=== PATIENT | female | born 1980 | race Caucasian/White ===

== ENCOUNTER 2016-12-25 20:22 | Emergency (ER) | payer MEDICAID, OTHER ==
[~2016-12-25] VITALS: Ht 172.7 cm; Wt 88.5 kg
[~2016-12-25 20:22] MED LIST: BACTRIM DS 800/1 TAB PO; EFFEXOR; EFFEXOR XR150 MG PO; MOTRIN600 M1 PO; NEURONTIN; NEURONTIN800 MG PO; TRAZADONE; TRAZADONE HYDR100 MG PO; VICODIN 500 MG-1 TA1 PO; XANAX0.5 MG PO
[2016-12-25 20:48] VITALS: BP 117/75
--- NOTE | 2016-12-25 21:07 | NUR ---
PT TAKEN TO OF
--- NOTE | 2016-12-25 21:51 | NUR ---
Dr. Young evaluating patient
--- NOTE | 2016-12-25 22:30 | NUR ---
Dr Conteh aware of pain. No orders received.
[2016-12-25 23:20] VITALS: BP 112/61
--- NOTE | 2016-12-25 23:20 | NUR ---
Patient discharged with v/s stable. Written and verbal after care instructions given and explained. Patient alert, oriented and verbalized understanding of instructions. Ambulatory with steady gait. All questions addressed prior to discharge. ID band removed. Patient advised to follow up with PMD. Rx of Flexeril given. Patient educated on indication of medication including possible reaction and side effects. Opportunity to ask questions provided and answered.
== END 2016-12-25 23:20 | disposition home or self-care (01) ==
LOC: MED 20:22
DX: S16.1XXA Strain of muscle, fascia and tendon at neck level, initial encounter (principal); S80.01XA Contusion of right knee, initial encounter; Z88.6 Allergy status to analgesic agent; Z88.0 Allergy status to penicillin; V49.40XA Driver injured in collision with unspecified motor vehicles in traffic accident, initial encounter; Y93.89 Activity, other specified; Y92.488 Other paved roadways as the place of occurrence of the external cause; Y99.8 Other external cause status

== ENCOUNTER 2017-03-28 22:03 | Emergency (ER) | payer OTHER ==
[~2017-03-28] VITALS: Ht 172.7 cm; Wt 88.5 kg
[~2017-03-28 22:03] MED LIST changes: +ACET-4192 PO; +ALPR0.5T2 PO; -BACTRIM DS 800/1 TAB PO; -EFFEXOR; -EFFEXOR XR150 MG PO; +GABA800T PO; +IBUP-2213 PO; -MOTRIN600 M1 PO; -NEURONTIN; -NEURONTIN800 MG PO; +SULF1TAB12 PO; +TRAZ-289 PO; -TRAZADONE; -TRAZADONE HYDR100 MG PO; -VICODIN 500 MG-1 TA1 PO; -XANAX0.5 MG PO; +[UNRECOGNIZED DRUG - CODE] PO
[2017-03-28 22:29] VITALS: BP 122/71
--- NOTE | 2017-03-29 00:10 | NUR ---
TO ER BED 7
--- NOTE | 2017-03-29 00:15 | NUR ---
36Y/F PT. PRESENTS TO ED WITH C/O ANXIETY ON AND OFF X 1 DAY. TOOK ATIVAN 0.5 MG PO 30 MINS. HX. BIPOLAR, ANXIETY, DEPRESSION. AAO X4, AMBULATORY WITH STEADY GAIT. NO S/SX OF DISTRESS AT THIS TIME. VSS, ER MADE AWARE OF PT. STATUS.
--- NOTE | 2017-03-29 00:15 | NUR ---
Patient being evaluated by physician at bedside.
--- NOTE | 2017-03-29 00:24 | NUR ---
Patient discharged with v/s stable. Written and verbal after care instructions given and explained. Patient verbalized understanding. Ambulatory with steady gait. All questions addressed prior to discharge. Advised to follow up with PMD.
[2017-03-29 00:34] VITALS: BP 118/78
== END 2017-03-29 00:34 | disposition home or self-care (01) ==
LOC: MED 22:03
DX: F41.9 Anxiety disorder, unspecified (principal); R03.0 Elevated blood-pressure reading, without diagnosis of hypertension; Z88.0 Allergy status to penicillin; Z88.1 Allergy status to other antibiotic agents; Z88.5 Allergy status to narcotic agent; Z79.899 Other long term (current) drug therapy
CPT/HCPCS: 81002; 81025; 99284

== ENCOUNTER 2017-04-19 17:47 | Emergency (ER) | payer OTHER ==
[~2017-04-19] VITALS: Ht 172.7 cm; Wt 88.5 kg
[2017-04-19 18:07] VITALS: BP 110/64
--- NOTE | 2017-04-19 18:27 | NUR ---
Patient taken from ED lobby to XRAY via wheelchair by tech.
--- NOTE | 2017-04-19 18:33 | NUR ---
Patient returned to ED lobby to wait for an available bed after completion of XRAY.
--- NOTE | 2017-04-19 19:11 | NUR ---
36/F c/o lower back pain s/p slip and fall last night 0300. Pt states she had lumbar surgery 3 years ago to L4 and L5 and states "It hurts where my surgery was." Ambulatory with steady gait. VSS. AOX4, clear speech.
--- NOTE | 2017-04-19 19:14 | NUR ---
Pt placed in bed 8
--- NOTE | 2017-04-19 19:17 | NUR ---
Christophe alonso in [facility] - 04/19/17 at [address] Gillespie evaluating patient at bedside.
--- NOTE | 2017-04-19 19:17 | NUR ---
Patient being evaluated by Dr. Gillespie at bedside.
[2017-04-19] MEDS ORDERED: HYDROcodone/APAP 5/325 MG 1 TAB TAB PO ONE (19:30)
[2017-04-19] MEDS ORDERED: KETOROLAC 30 MG/ML VIAL IM ONE (19:30)
--- NOTE | 2017-04-19 19:46 | NUR ---
Pt taken to x-ray via w/c.
--- NOTE | 2017-04-19 19:56 | NUR ---
PT RETURN FROM XRAY
--- NOTE | 2017-04-19 20:00 | NUR ---
Pt back from x-ray and placed in bed 8.
[2017-04-19 20:36] VITALS: BP 112/62
--- NOTE | 2017-04-19 20:37 | NUR ---
Patient discharged with v/s stable. Written and verbal after care instructions given and explained. Patient alert, oriented and verbalized understanding of instructions. Ambulatory with steady gait. All questions addressed prior to discharge. ID band removed. Patient advised to follow up with PMD. Rx of NAPROSYN 500MG, VALIUM 5MG TID/PRN given. Patient educated on indication of medication including possible reaction and side effects. Opportunity to ask questions provided and answered.
== END 2017-04-19 20:37 | disposition home or self-care (01) ==
LOC: MED 17:47
DX: S80.12XA Contusion of left lower leg, initial encounter (principal); M54.5 Low back pain; Z88.0 Allergy status to penicillin; Z88.5 Allergy status to narcotic agent; Z79.899 Other long term (current) drug therapy; Z88.8 Allergy status to other drugs, medicaments and biological substances; W01.0XXA Fall on same level from slipping, tripping and stumbling without subsequent striking against object, initial encounter; Y93.89 Activity, other specified; Y92.89 Other specified places as the place of occurrence of the external cause; Y99.8 Other external cause status
CPT/HCPCS: 72100; 73590; 96372; 99284; J1885

== ENCOUNTER 2018-02-14 20:22 | Emergency (ER) | payer OTHER ==
[~2018-02-14] VITALS: Ht 172.7 cm; Wt 83.9 kg
[2018-02-14 20:34] VITALS: BP 104/66
[2018-02-14] MEDS ORDERED: KETOROLAC 30 MG/ML VIAL IM ONE (20:50)
[2018-02-14] MEDS ORDERED: KETOROLAC 30 MG/ML VIAL ONE (20:55)
[2018-02-14 22:39] VITALS: BP 106/62
[2018-02-14 23:19] LABS: APPEARANCE,URINE CLEAR (CLEAR); BILIRUBIN,URINE NEGATIVE (NEGATIVE); BLOOD, URINE NEGATIVE (NEGATIVE); COLOR,URINE YELLOW (YELLOW); LEUKOCYTE ESTERASE ,URINE NEGATIVE (NEGATIVE); NITRITE, URINE NEGATIVE (NEGATIVE); UGLUCOSE NEGATIVE (NEGATIVE)
== END 2018-02-14 22:39 | disposition home or self-care (01) ==
LOC: MED 20:22
DX: M94.0 Chondrocostal junction syndrome [Tietze] (principal); F41.9 Anxiety disorder, unspecified; Z88.6 Allergy status to analgesic agent; Z88.8 Allergy status to other drugs, medicaments and biological substances; Z79.899 Other long term (current) drug therapy
CPT/HCPCS: 71045; 81003; 81025; 93005; 96372; 99285; J1885; Q0092

== ENCOUNTER 2018-02-22 19:15 | Emergency (ER) | payer OTHER ==
[~2018-02-22] VITALS: Ht 172.7 cm; Wt 83.9 kg
[2018-02-22 19:30] VITALS: BP 143/58
--- NOTE | 2018-02-22 19:30 | NUR ---
PT BROUGHT TO E FOR BEDSIDE TRIAGE. AMBULATED AND EVALUATED BY RN. EDMD MADE AWARE.
--- NOTE | 2018-02-22 19:40 | NUR ---
PT DENIES N/V/D; SKIN IS INTACT, PINK/WARM/DRY C/O ITCHING FOR 2 HRS X 4 EXTREMS; AAOX4, PERRL, WITH EVEN AND STEADY GAIT; LUNGS CLEAR BL, BREATHING UNLABORED; HR EVEN AND REGULAR, BL PERIPHERAL PULSES PRESENT; BS ACTIVE X4, NO TENDERNESS TO PALPATION, NO HEPATOSPLENOMEGALLY PALPATED, RESONANT TO PERCUSSION; PT DENIES ANY FEVER, CP, SOB, OR COUGH AT THIS TIME; PT STATES 0/10 PAIN AT THIS TIME; VSS; PATIENT POSITIONED FOR COMFORT; HOB ELEVATED; BEDRAILS UP X2; BED DOWN.
[2018-02-22 20:09] LABS: APPEARANCE,URINE CLEAR (CLEAR); BILIRUBIN,URINE NEGATIVE (NEGATIVE); BLOOD, URINE NEGATIVE (NEGATIVE); COLOR,URINE YELLOW (YELLOW); LEUKOCYTE ESTERASE ,URINE NEGATIVE (NEGATIVE); NITRITE, URINE NEGATIVE (NEGATIVE); UGLUCOSE NEGATIVE (NEGATIVE)
[2018-02-22] MEDS ORDERED: diphenhydrAMINE 50 MG CAP PO ONE (20:15)
[2018-02-22] MEDS ORDERED: DEXAMETHASONE 10 MG/ML VIAL IM ONE (20:15)
[2018-02-22 20:24] LABS: BARBITURATE, URINE NEGATIVE ng/ml (NEG <=200); BENZODIAZEPINE, URINE NEGATIVE ng/mL (NEG <=200); CANNABINOID, URINE NEGATIVE ng/mL (NEG <=50); COCAINE, URINE NEGATIVE ng/mL (NEG <=300); OPIATE, URINE NEGATIVE ng/mL (NEG <=2000); PHENCYCLIDINE SCREEN,URINE NEGATIVE ng/mL (NEG <=25)
[2018-02-22 22:10] VITALS: BP 135/57
--- NOTE | 2018-02-22 22:10 | NUR ---
Patient discharged with v/s stable. Written and verbal after care instructions given and explained. Patient alert, oriented and verbalized understanding of instructions. Ambulatory with steady gait. All questions addressed prior to discharge. ID band removed. Patient advised to follow up with PMD. Rx of BENADRYL 25MG given. Patient educated on indication of medication including possible reaction and side effects. Opportunity to ask questions provided and answered.
== END 2018-02-22 22:10 | disposition home or self-care (01) ==
LOC: MED 19:15
DX: L27.0 Generalized skin eruption due to drugs and medicaments taken internally (principal); T43.595A Adverse effect of other antipsychotics and neuroleptics, initial encounter; F11.988 Opioid use, unspecified with other opioid-induced disorder; Z88.5 Allergy status to narcotic agent; Z88.0 Allergy status to penicillin; Z79.899 Other long term (current) drug therapy; Y92.89 Other specified places as the place of occurrence of the external cause
CPT/HCPCS: 81003; 96372; 99283; J1100; Q0163

== ENCOUNTER 2018-05-24 09:30 | Emergency (ER) | payer OTHER ==
[~2018-05-24] VITALS: Ht 172.7 cm; Wt 86.3 kg
[~2018-05-24 09:30] MED LIST changes: -TRAZ-289 PO; +TRAZ100T99 PO
[2018-05-24 09:40] VITALS: BP 96/58
[2018-05-24] MEDS ORDERED: NACL 0.9% 1,000 ML IV SCH (10:10)
[2018-05-24] MEDS ORDERED: KETOROLAC 30 MG/ML VIAL IVP ONE (10:10)
[2018-05-24] MEDS ORDERED: ONDANSETRON 4 MG/2 ML VIAL IVP ONE (10:10)
[2018-05-24 10:33] LABS: APPEARANCE,URINE CLEAR (CLEAR); COLOR,URINE YELLOW (YELLOW)
[2018-05-24 10:34] LABS: PH,URINE 6.5 (5.0-9.0); UGLUCOSE NEGATIVE (NEGATIVE)
[2018-05-24 10:34] LABS: BASOPHILS % (AUTO) 0.6 % (0.0-2.0); EOSINOPHILS # (AUTO) 0.1 K/uL (0-0.4); EOSINOPHILS % (AUTO) 1.1 % (0.0-4.0); HEMATOCRIT 43.3 % (36-48); HEMOGLOBIN 14.6 g/dL (12.0-16.0); LYMPHOCYTES # (AUTO) 2.3 K/uL (2.5-16.5); MEAN CORPUSCULAR HEMOGLOBIN 32 pg (27-31); MEAN CORPUSCULAR HGB CONC 34 g/dL (33-37); MEAN CORPUSCULAR VOLUME 95.7 fL (80-94); MONOCYTES # (AUTO) 0.6 K/uL (0.8-1.0); MONOCYTES % (AUTO) 9.2 % (1.7-9.3); NEUTROPHILS # (AUTO) 3.7 K/uL (1.8-7.7); NEUTROPHILS % (AUTO) 55.1 % (42.2-75.2); PLATELET COUNT (AUTO) 186 K/uL (140-450); RED BLOOD CELL COUNT(AUTO) 4.52 MIL/uL (4.20-5.40); RED CELL DISTRIBUTION WIDTH 12.3 % (11.6-13.7); WHITE BLOOD COUNT (AUTO) 6.7 K/uL (4.8-10.8)
[2018-05-24 10:35] LABS: BILIRUBIN,URINE NEGATIVE (NEGATIVE); BLOOD, URINE NEGATIVE (NEGATIVE); LEUKOCYTE ESTERASE ,URINE NEGATIVE (NEGATIVE); NITRITE, URINE NEGATIVE (NEGATIVE)
[2018-05-24 10:45] LABS: ANION GAP 12.8 (8-16); CARBON DIOXIDE 26.3 mmol/L (21-32); POTASSIUM 4.1 mmol/L (3.5-5.1)
[2018-05-24 10:51] LABS: RBC,URINE 0-5 (RARE) /HPF (0-5); WBC,URINE 0-5 (RARE) /HPF (0-5)
[2018-05-24 10:51] LABS: ALBUMIN 3.9 g/dL (3.4-5.0); TOTAL BILIRUBIN 0.4 mg/dL (0.0-1.0)
[2018-05-24 11:55] VITALS: BP 102/58
== END 2018-05-24 11:56 | disposition home or self-care (01) ==
LOC: MED 09:30
DX: R11.2 Nausea with vomiting, unspecified (principal); R10.31 Right lower quadrant pain; Z90.89 Acquired absence of other organs; Z88.5 Allergy status to narcotic agent; Z79.899 Other long term (current) drug therapy
CPT/HCPCS: 36415; 74176; 80053; 81001; 81025; 83690; 85025; 96361; 96374; 96375; 99285; J1885; J2405; J7030

== ENCOUNTER 2018-07-10 20:14 | Emergency (ER) | payer OTHER ==
[~2018-07-10] VITALS: Ht 172.7 cm; Wt 88.5 kg
--- NOTE | 2018-07-10 20:22 | NUR ---
PT AMBULATED TO BED 7
[2018-07-10 20:26] VITALS: BP 103/59
--- NOTE | 2018-07-10 20:29 | NUR ---
PT C/O LOW BACK PAIN 03/10 ACHING AND SOB STARTING 1 HR AGO. DENIES INJURY. NO OTHER COMPLAINTS. STATES THIS HAS HAPPENED BEFORE. HX--- BIPOLAR, ANXIETY, KIDNEY STONES, BACK SURGERY MEDS---TRAZADONE, GABAPENTIN, NORCO, ATIVAN, EFFEXOR
--- NOTE | 2018-07-10 20:39 | NUR ---
UA DONE, HCG NEG
--- NOTE | 2018-07-10 20:41 | NUR ---
Dr. Shea evaluating patient at bedside.
[2018-07-10] MEDS ORDERED: ALPRAZolam 0.5 MG TAB PO ONE (20:45)
--- NOTE | 2018-07-10 21:04 | NUR ---
X-Ray at bedside.
--- NOTE | 2018-07-10 21:24 | NUR ---
REPORT GIVEN TO BROWN TOBAR
[2018-07-10 21:44] VITALS: BP 110/57
== END 2018-07-10 21:47 | disposition home or self-care (01) ==
LOC: MED 20:14
DX: F41.9 Anxiety disorder, unspecified (principal); Z88.5 Allergy status to narcotic agent; Z88.0 Allergy status to penicillin; Z79.899 Other long term (current) drug therapy; Z79.1 Long term (current) use of non-steroidal anti-inflammatories (NSAID)
CPT/HCPCS: 71045; 81002; 81025; 99283; Q0092

== ENCOUNTER 2018-09-26 01:32 | Emergency (ER) | payer OTHER ==
[~2018-09-26] VITALS: Ht 172.7 cm; Wt 95.3 kg
[2018-09-26 01:37] VITALS: BP 111/59
--- NOTE | 2018-09-26 01:44 | NUR ---
PT AMBULATORY TO BR THEN TO ER LOBBY W/ STEADY GAIT IN STABLE CONDITION.
--- NOTE | 2018-09-26 02:58 | NUR ---
PT AMBULATED TO BED 6
--- NOTE | 2018-09-26 03:24 | NUR ---
PT TO ED WITH C/O SORE THROAT AND DYSURIA X 10 DAYS. PT DENIES CP/SOB/DIFFICULTY BREATHING. PT PLACED INTO BED, PENDING MD BRICE.
[2018-09-26] MEDS ORDERED: AZITHROMYCIN 250 MG TAB PO ONE (03:40)
[2018-09-26] MEDS ORDERED: IBUPROFEN 800 MG TAB PO ONE (03:40)
[2018-09-26 04:04] VITALS: BP 111/59
--- NOTE | 2018-09-26 04:05 | NUR ---
Patient discharged with v/s stable. Written and verbal after care instructions given and explained. Patient alert, oriented and verbalized understanding of instructions. Ambulatory with steady gait. All questions addressed prior to discharge. ID band removed. Patient advised to follow up with PMD. Rx of AZITHROYMYCIN, MOTRIN given. Patient educated on indication of medication including possible reaction and side effects. Opportunity to ask questions provided and answered.
== END 2018-09-26 04:05 | disposition home or self-care (01) ==
LOC: MED 01:32
DX: J02.8 Acute pharyngitis due to other specified organisms (principal); B96.89 Other specified bacterial agents as the cause of diseases classified elsewhere; Z90.49 Acquired absence of other specified parts of digestive tract; Z88.0 Allergy status to penicillin; Z88.5 Allergy status to narcotic agent; Z88.8 Allergy status to other drugs, medicaments and biological substances; Z79.899 Other long term (current) drug therapy
CPT/HCPCS: 81002; 81025; 99283

== ENCOUNTER 2021-04-16 08:16 | Emergency (ER) | payer OTHER ==
[~2021-04-16] VITALS: Ht 172.7 cm; Wt 104.3 kg
[~2021-04-16 08:16] MED LIST changes: +SULF-954 PO; -SULF1TAB12 PO; +TRAZ-471 PO; -TRAZ100T99 PO
[2021-04-16 08:21] VITALS: BP 140/80
--- NOTE | 2021-04-16 08:33 | NUR ---
PT AMB TO BED 9
--- NOTE | 2021-04-16 08:40 | NUR ---
BIB SELF c/o 03/10 head pain, lauren knee pain s/p fall x 1 week. SEEN BY PAIN MANAGEMENT FOR BACK PAIN IN 03/26/21. PT HAS THE APPOINTMENT FOR PAIN MANAGEMENT FOR BACK PAIN EVERY 2 MONTHS. PMH: BACK SURGERY IN 2013
--- NOTE | 2021-04-16 08:44 | NUR ---
Patient being evaluated by DR SCHULTZ at bedside.
[2021-04-16] MEDS ORDERED: KETOROLAC 60 MG/2 ML VIAL IM ONE (08:50)
--- NOTE | 2021-04-16 09:34 | NUR ---
PT STATES SHE IS FEELING BETTER AFTER TORADOL SHOT, PAIN HAS DECREASED TO A 3/10 IN HEAD.
[2021-04-16 09:41] VITALS: BP 140/80
--- NOTE | 2021-04-16 09:41 | NUR ---
Patient discharged with v/s stable. Written and verbal after care instructions given and explained. Patient verbalized understanding. Ambulatory with to car. All questions addressed prior to discharge. Advised to follow up with PMD.
== END 2021-04-16 09:41 | disposition home or self-care (01) ==
LOC: MED 08:16
DX: S80.01XA Contusion of right knee, initial encounter (principal); S80.02XA Contusion of left knee, initial encounter; R51.9 Headache, unspecified; F12.90 Cannabis use, unspecified, uncomplicated; Z88.0 Allergy status to penicillin; Z88.8 Allergy status to other drugs, medicaments and biological substances; Z88.5 Allergy status to narcotic agent; Z79.899 Other long term (current) drug therapy; Z90.49 Acquired absence of other specified parts of digestive tract; Z98.890 Other specified postprocedural states; W22.8XXA Striking against or struck by other objects, initial encounter; Y93.89 Activity, other specified; Y92.89 Other specified places as the place of occurrence of the external cause; Y99.8 Other external cause status
CPT/HCPCS: 81002; 81025; 96372; 99283; J1885

== ENCOUNTER 2021-05-22 17:41 | Emergency (ER) | payer OTHER ==
[~2021-05-22] VITALS: Ht 172.7 cm; Wt 61.2 kg
[2021-05-22 17:45] VITALS: BP 107/57
--- NOTE | 2021-05-22 18:24 | NUR ---
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
[2021-05-22] MEDS ORDERED: HYDROmorphone PFS 2 MG/ML SYR IVP ONE (19:05)
[2021-05-22] MEDS ORDERED: diphenhydrAMINE 50 MG/ML VIAL IVP ONE (19:05)
[2021-05-22] MEDS ORDERED: METOCLOPRAMIDE 10 MG/2 ML INJ VIAL IVP ONE (19:05)
--- NOTE | 2021-05-22 19:20 | NUR ---
41 YO/F BIB SELF W C/O GENERALIZED ABDOMINAL PAIN SHARP/CRAMPING, CONSTANT NON-RADIATING 10/10 BEGINING AT 1000 THIS MORNING. +N/V(NO BLOOD IN VOMIT), BODY ACHES, HEADACHE. DENIES ANY FEVER, CHILLS, DIARRHEA, CONSTIPATION, CHEST PAIN OR SOB. DENIES ANY URINE OR BOWEL PROBLEMS. DENIES ANY INJURIES. BOWEL SOUNDS PRESENT THROUGHOUT, ABDOMEN SOFT AND TENDER. VSS, EXCEPT TACHY CARDIC AT 104 ERMD AWARE. PT LAYING IN BED LOCKED IN LOWEST POSITION W X2 SIDERAILS UP FOR PT SAFETY. BREATHING EVEN AND UNLABORED. NAD NOTED, WILL CONTINUE TO MONITOR. CAREGIVER AT BEDSIDE. PROVIDED PT W ICE CHIPS AND WATER PER ERMD OK. PMH:DEPRESSION, ANXIETY, +BACK, FEET, R LEG, HANDS SURGERIES ALLERGIES: PENICILLINS, CODEINE, MORPHINE, NIACIN, IODINE, VANCOMYCIN, HALDOL, ZYPREXA
--- NOTE | 2021-05-22 19:20 | NUR ---
PT ORAL TEMP 100.8, ERMD MADE AWARE.
[2021-05-22 19:32] LABS: APPEARANCE,URINE CLEAR (CLEAR); BILIRUBIN,URINE NEGATIVE (NEGATIVE); BLOOD, URINE NEGATIVE (NEGATIVE); COLOR,URINE YELLOW (YELLOW); LEUKOCYTE ESTERASE ,URINE NEGATIVE (NEGATIVE); NITRITE, URINE NEGATIVE (NEGATIVE); UGLUCOSE NEGATIVE (NEGATIVE)
[2021-05-22 19:32] LABS: BASOPHILS % (AUTO) 0.3 % (0.0-2.0); EOSINOPHILS % (AUTO) 0.3 % (0.0-4.0); HEMATOCRIT 45.1 % (36-48); HEMOGLOBIN 15.4 g/dL (12.0-16.0); LYMPHOCYTES # (AUTO) 0.7 K/uL (2.5-16.5); MEAN CORPUSCULAR HEMOGLOBIN 33 pg (27-31); MEAN CORPUSCULAR HGB CONC 34 g/dL (33-37); MEAN CORPUSCULAR VOLUME 96.3 fL (80-94); MONOCYTES # (AUTO) 0.4 K/uL (0.8-1.0); MONOCYTES % (AUTO) 4.8 % (1.7-9.3); NEUTROPHILS # (AUTO) 7.7 K/uL (1.8-7.7); NEUTROPHILS % (AUTO) 86.6 % (42.2-75.2); PLATELET COUNT (AUTO) 200 K/uL (140-450); RED BLOOD CELL COUNT(AUTO) 4.68 MIL/uL (4.20-5.40); RED CELL DISTRIBUTION WIDTH 12.2 % (11.6-13.7); WHITE BLOOD COUNT (AUTO) 8.9 K/uL (4.8-10.8)
[2021-05-22 19:48] LABS: ALBUMIN 3.7 g/dL (3.4-5.0); ANION GAP 17.6 (8-16); CARBON DIOXIDE 21.9 mmol/L (21-32); CREATININE 1.2 mg/dL (0.6-1.3); POTASSIUM 3.5 mmol/L (3.5-5.1); TOTAL BILIRUBIN 0.7 mg/dL (0.0-1.0)
--- NOTE | 2021-05-22 20:18 | NUR ---
PT APPERS TO BE RESTING W EYES CLOSED. BREATHING EVEN AND UNLABORED. BED LOCKED IN LOWEST POSITION. NAD NOTED, WILL CONTINUE TO MONITOR. VSS ON MONITOR. CAREGIVER AT BEDSIDE.
--- NOTE | 2021-05-22 20:43 | NUR ---
PT REPORTS PAIN IMPROVEMENT TO 2/10, PT REPORTS IMPROVEMENT OF NAUSEA. PT DENIES ONGOING HEADACHE, BODY ACHES.
[2021-05-22] MEDS ORDERED: NACL 0.9% 1,000 ML IV ONE ×2 (21:05→22:15)
[2021-05-23 01:33] VITALS: BP 125/80
== END 2021-05-23 01:33 | disposition home or self-care (01) ==
LOC: MED 17:41
DX: A08.4 Viral intestinal infection, unspecified (principal); R11.2 Nausea with vomiting, unspecified; G43.909 Migraine, unspecified, not intractable, without status migrainosus; Z87.442 Personal history of urinary calculi; Z88.0 Allergy status to penicillin; Z88.5 Allergy status to narcotic agent; Z88.8 Allergy status to other drugs, medicaments and biological substances; Z88.1 Allergy status to other antibiotic agents; Z79.899 Other long term (current) drug therapy; Z90.49 Acquired absence of other specified parts of digestive tract; Z98.890 Other specified postprocedural states
CPT/HCPCS: 36415; 74176; 80053; 81003; 81025; 82150; 83605; 83690; 84703; 85025; 87040; 87086; 96361; 96374; 96375; 99284; J1170; J1200; J2765; J7030